=== PATIENT | male | born 1980 | race Caucasian/White ===

== ENCOUNTER 2020-05-23 16:09 | Emergency (ER) | payer OTHER, SELFPAY ==
--- NOTE | ~2020-05-23 | XR_ITS ---
EXAMINATION: XR shoulder RT min 2V DATE: 05/23/2020 16:31 INDICATION: Right shoulder pain. Fall. TECHNIQUE: 4 views of right shoulder on 5 radiographs were obtained. COMPARISON: None. FINDINGS: There is inferior dislocation of the acromion with respect to distal clavicle. There is wid ening of the coracoclavicular interval, consistent with coracoclavicular ligament tear. No fracture. Glenohumeral joint is normal. IMPRESSION: 1. Type III right acromioclavicular separation. Reviewed, dictated and finalized at location A.
[2020-05-23 16:11] VITALS: BP 153/84; PULSE 68; RESP 18; TEMP 36.6; O2SAT 97
--- NOTE | 2020-05-23 16:34 | ED.UPPEXIN ---
HPI - Extremity Injury (Upper) General Chief Complaint: Fall Stated Complaint: right shoulder injury Time Seen by Provider: 05/23/20 16:19 Source: patient Mode of arrival: ambulatory Limitations: no limitations History of Present Illness HPI narrative: 40-year-old male He was playing catch at his son's flag football game After making a nice grab he stumbled and tumbled to the ground landing on his outer right shoulder, with immediate pain Importantly, he did not drop the ball and it was ruled a catch by onlookers There is no gross deformity No other injuries, no headache or head injury, no neck pain MD complaint: injury to: right and shoulder Other injuries: none Handedness: right Review of Systems Musculoskeletal: Musculoskeletal: Reports arthralgias and Reports joint swelling Neurologic: Denies numbness and Denies weakness Exam Const: General: no acute distress and alert Orientation/consciousness: patient oriented x3 HENMT: Head: normal to inspection Course Vital Signs Vital signs: Vital Signs Temperature 36.6 C 05/23/20 16:11 Pulse Rate 68 05/23/20 16:11 Respiratory Rate 18 05/23/20 16:11 Blood Pressure 153/84 H 05/23/20 16:11 Pulse Oximetry 97 05/23/20 16:11 Temperature 36.6 C 05/23/20 17:31 Pulse Rate 80 05/23/20 17:31 Respiratory Rate 18 05/23/20 17:31 Blood Pressure 127/80 05/23/20 17:31 Pulse Oximetry 99 05/23/20 17:31 MDM - Extremity Injury (Upper) MDM Narrative Medical decision making narrative: d/w pt, can be tx'ed conservatively, but good idea to d/w ortho re recovery and functional outcomes compared to surgery Imaging Data Radiologist's impression: ITS Impressions Shoulder X-Ray 05/23/20 16:38 IMPRESSION: 1. Type III right acromioclavicular separation. Discharge Plan Discharge Clinical Impression: AC separation, type 3 Patient Disposition: Home, Self-Care Condition: Stable Instructions: Acromioclavicular Separation (ED), How to Use a Sling (ED) Prescriptions: New naproxen [Naprosyn] 500 mg tablet 500 mg PO BID PRN (Reason: pain) Qty: 30 RF: 0 Follow-up/Referrals: Rebceca,JYOTSNA Vance [Primary Care Provider] - Ever Nair MD [Physician] - (next week) Discharge Date/Time: 05/23/20 17:32
[2020-05-23] MEDS: NAPROXEN 500 MG TABLET PO (17:29)
[2020-05-23 17:31] VITALS: BP 127/80; PULSE 80; RESP 18; TEMP 36.6; O2SAT 99
== END 2020-05-23 17:32 | disposition home or self-care (01) ==
PROVIDERS: Emergency Provider Emergency Medicine; PCP Physician Assistant
DX: S43.101A Unspecified dislocation of right acromioclavicular joint, initial encounter (principal); W01.0XXA Fall on same level from slipping, tripping and stumbling without subsequent striking against object, initial encounter; Y93.62 Activity, american flag or touch football
CPT/HCPCS: 73030; 99283; A4565; A9270